=== PATIENT | female | born 1985 | race Caucasian/White ===

== ENCOUNTER 2016-12-24 14:50 | Emergency (ER) | payer OTHER ==
--- NOTE | ~2016-12-24 | CR63 ---
[facility] A Service of [facility] RADIOLOGY TEXT RESULTS PATIENT: ALONSO LOZADA LOCATION: SED : 83 UNIT #: [id number] AGE: [address]: Anuradha Treviño APRN SEX: F ORDER DR: [id number] [place] [address] [id number] E MR#: [id number] Acc #: [id number] NAME: ALONSO LOZADA : 1985 SEX: F STUDY DATE/TIME: 12/24/2016 15:12 UNIT: SED ROOM: STUDY DESCRIPTION: CR Chest 2 View Attending Physician: Anuradha Treviño A.P.R.N. Referring Physician: Anuradha Treviño A.P.R.N. Ordering Physician: Anuradha Treviño A.P.R.N. Primary Care Physician: Kalen Gonzales M.D. MEDICAL IMAGING REPORT This report is preliminary unless electronic signature is present. EXAM Chest x-ray. DATE OF EXAM 12/24/2016 INDICATIONS Fever and cough that started yesterday. Sore throat and body aches, as well. COMPARISON 10/27/2016 FINDINGS PA and lateral examination of the chest upright shows a good expansion of the parenchyma with a normal distribution of the pulmonary vascularity. There is no indication of congestion, effusion, infiltrate, tumor, or nodular density. The pleural reflections and diaphragmatic contours are normal. The cardiac silhouette and mediastinal anatomy is within normal limits. IMPRESSION Normal 2 views chest. Dictated by... Ric Cantrell Jr., M.D. THIS IS AN ELECTRONICALLY VERIFIED REPORT Ric Cantrell Jr., M.D. at 12/28/2016 2:23 PM OSCARK/meghan [facility] A Service [facility] RADIOLOGY TEXT RESULTS PATIENT: ALONSO LOZADA LOCATION: SED : 83 UNIT #: [id number] AGE: [address]: Anuradha Treviño APRN SEX: F ORDER DR: TD: 12/24/2016 23:10 JOB #: [id number] MEDICAL IMAGING REPORT
[~2016-12-24 14:50] MED LIST: ACETAMINOPHEN PO; ALBUTEROL 0.5ML; ALBUTEROL INH; ALBUTEROL MININEB NEB; ALBUTEROL17 GM; ALBUTEROL17 GM INH; AMOXICILLIN875 MG PO; ASTEPRO205.5 MCG/; AUGMENTIN PO; AUGMENTIN875 MG; AURALGAN OTIC S14 ML OT; BACTRIM DS TABL1 TAB PO; BENTYL20 M1 PO; CELEXA; CELEXA PO; CETIRIZINE HCL10 MG PO; CIPRO PO; CODIENE PO; DICLOFENAC PO; DOXY 100100 MG PO; EC-NAPROSYN500 MG PO; FIORICET W/CODE1 CAP PO; FLAGYL PO; FLEXERIL PO; FLEXERIL10 M1 PO; FLEXERIL10 MG PO; FLONASE 0.05% N16 G1; FLONASE16 GM; GLUCOPHAGE500 M1 PO; HYCODAN60 ML 5MG/ PO; HYDROCODON-ACE1 EAC9; IBUPROFEN400 MG PO; IBUPROFEN800 MG PO; LASIX; LEVAQUIN PO; LEVOTHYROXINE300 MCG; LEVOXYL150 MC1 PO; LIPITOR40 MG PO; LISINOPRIL1 GM; LISINOPRIL10 MG; LISINOPRIL10 MG PO; LISINOPRIL5 MG PO; LODINE XL PO; MEDROL PO; MEDROL4 MG/DOSE- PO; MELATONIN5 M1 PO; METFORMIN PO; MOBIC15 MG PO; MONTELUKAST SOD10 MG PO; MOTRIN PO; OMNICEF PO; OMNICEF300 M1 PO; PANTOPRAZOLE SO40 MG PO; PAXIL10 MG PO; PHENERGAN DM1 ML PO; PHENERGAN PO; PHENERGAN W/CO120 ML PO; PHENERGAN25 MG; PREDNISONE PO; PREDNISONE10 MG PO; PREDNISONE50 MG PO; PRILOSEC; PRILOSEC20 M1 PO; PRILOSEC40 MG PO; PROMETHAZINE D118 ML PO; PROMETHAZINE-D240 ML PO; PROZAC; PROZAC PO; ROBAXIN 750750 MG PO; ROBITUSSIN PO; SINGULAIR; SLEEPING PILL; SPIRIVA18 MCG INH; SYMBICORT; SYMBICORT 16010.2 GM INH; SYNTHROID; SYNTHROID PO; SYNTHROID0.2 MG PO; SYNTHROID300 MCG; TRAMADOL HCL50 M1 PO; TRAMADOL HCL50 M2 PO; ULTRAM PO; VIBRAMYCIN100 M1 PO; VICODIN 5/1 TAB 5/50 PO; VISTARIL PO; VITAMIN B6200 MG PO; VOLTAREN75 MG; VOLTAREN75 MG PO; WATER PILL; ZITHROMAX PO; ZOFRAN ODT4 MG PO; ZOFRAN ODT4 MG SL; ZOLOFT50 MG PO; ZYRTEC; ZYRTEC PO; [UNRECOGNIZED DRUG - CODE] PO
[2016-12-24 15:02] LABS: INFLUENZA A NEG (NEG); INFLUENZA B NEG (NEG)
== END 2016-12-24 15:48 | disposition home or self-care (01) ==
LOC: SED 14:50
PROVIDERS: Nurse Practitioner
DX: J11.1 Influenza due to unidentified influenza virus with other respiratory manifestations (principal); H66.92 Otitis media, unspecified, left ear; E11.9 Type 2 diabetes mellitus without complications; I10 Essential (primary) hypertension; J44.9 Chronic obstructive pulmonary disease, unspecified; F32.9 Major depressive disorder, single episode, unspecified; F17.210 Nicotine dependence, cigarettes, uncomplicated; Z79.899 Other long term (current) drug therapy; Z88.5 Allergy status to narcotic agent; Z88.6 Allergy status to analgesic agent; Z88.8 Allergy status to other drugs, medicaments and biological substances
CPT/HCPCS: 71020; 82947; 87651; 87804; 94640; 99283

== ENCOUNTER 2016-12-28 17:35 | Emergency (ER) | payer OTHER ==
[2016-12-28] MEDS ORDERED: PROTONIX PO (17:38)
== END 2016-12-28 18:41 | disposition home or self-care (01) ==
LOC: SED 17:35
DX: H92.01 Otalgia, right ear (principal); F17.210 Nicotine dependence, cigarettes, uncomplicated; J44.9 Chronic obstructive pulmonary disease, unspecified; Z88.8 Allergy status to other drugs, medicaments and biological substances; Z88.5 Allergy status to narcotic agent
CPT/HCPCS: 99283

== ENCOUNTER 2017-02-25 16:04 | Emergency (ER) | payer OTHER ==
--- NOTE | ~2017-02-25 | EKG ---
PATIENT: ALONSO LOZADA UNIT #: [id number] Ventricular Rate: 81 BPM Atrial Rate: 81 BPM P-R Interval: 152 ms QRS Duration: 78 ms Q-T Interval: 372 ms QTC Calculation(Bezet): 432 ms P [place]: 44 degrees Calculated R [place]: 43 degrees Calculated T [place]: 45 degrees Diagnosis Line: Normal sinus rhythm Diagnosis Line: Low voltage QRS Diagnosis Line: Nonspecific ST abnormality Diagnosis Line: Abnormal ECG Diagnosis Line: Diagnosis Line: Confirmed by SABRINA VALLADARES MD ([id number]) on Diagnosis Line: 03/03/2017 8:49:58 AM INTERPRETING MD: JACQUELYN SANTIAGO
[~2017-02-25 16:04] MED LIST changes: +PROTONIX PO
[2017-02-25] MEDS ORDERED: BREO ELLIPTA 21 EACH (16:11)
[2017-02-25] MEDS ORDERED: NEURONTIN600 MG DOB (16:12)
[2017-02-25 16:55] LABS: POC - CKMB <1.0 ng/mL (0.0-7.9); POC - TROPONIN <0.05 ng/mL (<=0.05)
[2017-02-25 16:58] LABS: BASOPHIL# 0.1 X10e3 (0-0.3); BASOPHIL% 0.9 % (0-2.5); DIFF IND NO; EOSINOPHIL# 0.4 X10e3 (0-0.7); EOSINOPHIL% 3.9 % (0.0-7.0); HEMATOCRIT 47.6 % (35.0-45.0); LYMPHOCYTE# 3.3 X10e3 (1.0-3.5); LYMPHOCYTE% 28.3 % (17.0-45.0); MEAN CELL VOLUME 90.4 FL (83-96); MEAN CORPUSCULAR HEMOGLOBIN 30.4 PG (28-34); MEAN CORPUSCULAR HGB CONC 33.6 g/dL (30-36); MEAN PLATELET VOLUME 8.5 FL (6.5-11.5); MONOCYTE# 0.9 X10e3 (0-1.0); MONOCYTE% 7.5 % (3.0-12.0); NEUTROPHIL# 6.9 X10e3 (1.5-7.1); NEUTROPHIL% 59.4 % (40-75); PLATELET COUNT 283 X10e3 (140-420); RED BLOOD COUNT 5.26 X10e (3.90-5.30); RED CELL DISTRIBUTION WIDTH 13.9 % (11.0-15.5); WHITE BLOOD COUNT 11.6 X10e3 (4.0-10.5)
[2017-02-25 17:09] LABS: ALBUMIN SERUM 3.6 g/dL (3.5-5.0); BILIRUBIN, DIRECT 0.1 mg/dL (0.0-0.2); BILIRUBIN,INDIRECT 0.3 mg/dL (0.0-0.9); BILIRUBIN,TOTAL 0.4 mg/dL (0.2-2.0); BUN/CREATININE RATIO 13.33; CALCIUM SERUM 8.3 mg/dL (8.4-10.2); CREATININE SERUM 0.6 mg/dL (0.6-1.4); GLOM FILT RATE Estimated 119.8 mL/min (>60); POTASSIUM 3.9 mmol/L (3.5-5.1); PROTEIN TOTAL SERUM 6.9 g/dL (6.0-8.3)
== END 2017-02-25 16:49 | disposition home or self-care (01) ==
LOC: SED 16:04
PROVIDERS: Emergency Medicine
DX: R07.89 Other chest pain (principal); E11.9 Type 2 diabetes mellitus without complications; J44.9 Chronic obstructive pulmonary disease, unspecified; F17.200 Nicotine dependence, unspecified, uncomplicated; Z88.8 Allergy status to other drugs, medicaments and biological substances; Z88.6 Allergy status to analgesic agent; Z79.899 Other long term (current) drug therapy
CPT/HCPCS: 36415; 80048; 80076; 82553; 84484; 85025; 85379; 85610; 85730; 93005; 99284

== ENCOUNTER 2017-02-26 08:44 | Emergency (ER) | payer OTHER ==
--- NOTE | ~2017-02-26 | CT16 ---
[facility] A Service of [facility] & [facility] RADIOLOGY TEXT RESULTS PATIENT: ALONSO LOZADA LOCATION: SED : 83 UNIT #: [id number] AGE: [address]: Joshua Sepulveda MD SEX: F ORDER DR: [id number] [address] [id number] E MR#: [id number] Acc #: [id number] NAME: ALONSO LZOADA : 1985 SEX: F STUDY DATE/TIME: 02/26/2017 09:38 UNIT: SED ROOM: STUDY DESCRIPTION: CT Angio Chest for PE Attending Physician: Joshua Sepulveda M.D. Referring Physician: Joshua Sepulveda M.D. Ordering Physician: [id number] Raven Sepulveda Primary Care Physician: Kalen Gonzales M.D. MEDICAL IMAGING REPORT This report is preliminary unless electronic signature is present. EXAM CT angiogram of the chest for pulmonary embolism 02/26/2017 0938 hours HISTORY 31-year-old woman complaining of chest pain for 4 days with elevated D-dimer. Pain in the central chest described as pleuritic pain. COMPARISON CT chest 09/21/[address] angiographic images were obtained from the thoracic inlet through the adrenal glands. 3-D sagittal and coronal reconstructions were performed. Contrast was Isovue-370 100 mL. Total exam DLP 1122 mGy-cm. This CT exam was performed with one or more of the following radiation dose reduction techniques: automatic exposure control, adjustment of mA and/or kV according to patient size, and iterative reconstruction. FINDINGS Images through the thoracic inlet demonstrate no thyroid lesion or supraclavicular adenopathy. Images through the chest demonstrate slightly suboptimal timing of the contrast bolus. There is no evidence of pulmonary embolism in the central through third order vessels. The peripheral vessels difficult to assess although no suspicious areas are seen. The aorta is moderately well opacified and normal in caliber. No dissection. Cardiac chambers and pericardium are normal. There is no pathologic adenopathy. The esophagus is normal. There is no pericardial or pleural fluid. [facility] A Service of [facility] & [facility] RADIOLOGY TEXT RESULTS PATIENT: ALONSO LOZADA LOCATION: SED : 83 UNIT #: [id number] AGE: [address]: Joshua Sepulveda MD SEX: F ORDER DR: The lungs demonstrate a linear to patchy ground-glass density in the medial left upper lobe best seen on images 59-63. This is new from 09/21/2016 and could represent an area of atelectasis or a small area of infection. There is no other evidence of pneumonia or mass. Limited views through the upper abdomen are negative. IMPRESSION 1. Timing of the contrast bolus is slightly suboptimal. There is no evidence of pulmonary embolism in the first through third order vessels and no suspicion in the peripheral vessels. 2. Normal aorta. 3. There is a small area of patchy ground-glass change in linear change medially in the left upper lobe in the anterior left lung. This is new from 09/21/2016. While this could simply represent atelectasis a small focus of developing infection cannot be excluded. The lungs are otherwise clear. There is no effusion. 1. Dictated by... Nadya Cleveland M.D. THIS IS AN ELECTRONICALLY VERIFIED REPORT Nadya Cleveland M.D. at 02/26/2017 2:27 PM Inge TD: 02/26/2017 11:04 JOB #: [id number] MEDICAL IMAGING REPORT Page 1 of 1
--- NOTE | ~2017-02-26 | EKG ---
PATIENT: ALONSO LOZADA UNIT #: [id number] Ventricular Rate: 75 BPM Atrial Rate: 75 BPM P-R Interval: 156 ms QRS Duration: 76 ms Q-T Interval: 378 ms QTC Calculation(Bezet): 422 ms P [place]: 29 degrees Calculated R [place]: 27 degrees Calculated T [place]: 20 degrees Diagnosis Line: Normal sinus rhythm Diagnosis Line: Low voltage QRS Diagnosis Line: Borderline ECG Diagnosis Line: Diagnosis Line: Confirmed by SABRINA VALLADARES MD ([id number]) on Diagnosis Line: 03/03/2017 8:49:35 AM INTERPRETING MD: JACQUELYN SANTIAGO
[~2017-02-26 08:44] MED LIST changes: +BREO ELLIPTA 21 EACH; +NEURONTIN600 MG DOB
[2017-02-26 09:42] LABS: BASOPHIL# 0.2 X10e3 (0-0.3); BASOPHIL% 1.3 % (0-2.5); EOSINOPHIL# 0.3 X10e3 (0-0.7); EOSINOPHIL% 2.9 % (0.0-7.0); HEMATOCRIT 46.8 % (35.0-45.0); LYMPHOCYTE# 2.7 X10e3 (1.0-3.5); LYMPHOCYTE% 23.8 % (17.0-45.0); MEAN CORPUSCULAR HEMOGLOBIN 30.8 PG (28-34); MEAN CORPUSCULAR HGB CONC 34.2 g/dL (30-36); MEAN PLATELET VOLUME 8.1 FL (6.5-11.5); MONOCYTE# 0.6 X10e3 (0-1.0); MONOCYTE% 5.3 % (3.0-12.0); NEUTROPHIL# 7.6 X10e3 (1.5-7.1); NEUTROPHIL% 66.7 % (40-75); PLATELET COUNT 268 X10e3 (140-420); RED CELL DISTRIBUTION WIDTH 13.8 % (11.0-15.5); WHITE BLOOD COUNT 11.4 X10e3 (4.0-10.5)
[2017-02-26 09:45] LABS: DIFF IND NO
[2017-02-26 09:53] LABS: POC - CKMB <1.0 ng/mL (0.0-7.9); POC - TROPONIN <0.05 ng/mL (<=0.05)
[2017-02-26 10:03] LABS: PROTHROMBIN TIME (PATIENT) 11.8 SECONDS (9.5-12.4)
[2017-02-26 10:11] LABS: PARTIAL THROMBOPLASTIN TIME 30.6 SECONDS (25.6-38.1)
[2017-02-26 10:13] LABS: ALBUMIN SERUM 3.7 g/dL (3.5-5.0); BILIRUBIN, DIRECT 0.1 mg/dL (0.0-0.2); BILIRUBIN,INDIRECT 0.4 mg/dL (0.0-0.9); BILIRUBIN,TOTAL 0.5 mg/dL (0.2-2.0); BUN/CREATININE RATIO 12.85; CALCIUM SERUM 8.3 mg/dL (8.4-10.2); CREATININE SERUM 0.7 mg/dL (0.6-1.4); GLOM FILT RATE Estimated 113.8 mL/min (>60); PROTEIN TOTAL SERUM 7.2 g/dL (6.0-8.3)
== END 2017-02-26 10:35 | disposition home or self-care (01) ==
LOC: SED 08:44
PROVIDERS: Emergency Medicine
DX: R09.1 Pleurisy (principal); J18.9 Pneumonia, unspecified organism
CPT/HCPCS: 36415; 71275; 80048; 80076; 82553; 84484; 85025; 85610; 85730; 93005; 99284; J1885; Q9967